=== PATIENT | male | born 1975 | race Caucasian/White ===

== ENCOUNTER 2022-02-21 09:56 | Emergency (ER) | payer OTHER ==
[~2022-02-21 09:56] MED LIST: AMOXICILLIN 50500 MG PO; BUPROPION HCL100 MG PO; LISINOPRIL10 MG PO; NORCO 325 MG-51 TA1 PO
[2022-02-21 10:35] VITALS: BP 179/121
== END 2022-02-21 10:35 | disposition home or self-care (01) ==
LOC: ED 09:56
DX: S61.412A Laceration without foreign body of left hand, initial encounter (principal); Z23 Encounter for immunization; W26.8XXA Contact with other sharp object(s), not elsewhere classified, initial encounter; Y92.59 Other trade areas as the place of occurrence of the external cause; Y99.0 Civilian activity done for income or pay
CPT/HCPCS: 90715

== ENCOUNTER → 2022-02-28 | Outpatient (CLI) | payer OTHER ==
[~2022-02-28] MED LIST changes: +CEPHALEXIN500 M1 PO
== END ==
LOC: AMSURD 07:56
DX: Z48.02 Encounter for removal of sutures (principal)